=== PATIENT | male | born 1980 | race Caucasian/White ===

== ENCOUNTER → 2020-06-09 08:29 | Outpatient (BNVA) | payer OTHER, SELFPAY | PROVIDERS: PCP Nurse Practitioner Family; Visit Provider Physician Assistant ==

== ENCOUNTER 2020-06-17 08:24 | Outpatient (REF) | payer OTHER, SELFPAY ==
[2020-06-17 17:47] LABS: Vitamin D 25-OH Total 23.4 ng/mL (>30)
[2020-06-18 05:15] LABS: Folate 18.6 ng/mL (> or = 4.0); Vitamin B12 381 pg/mL (200-900)
[2020-06-19 16:41] LABS: Zinc 76 mcg/dL (60-130)
[2020-06-20 13:06] LABS: Vitamin B1 12 nmol/L (8-30)
[2020-06-20 18:17] LABS: Vitamin A 65 mcg/dL (38-98)
== END 2020-06-17 08:25 | disposition home or self-care (01) ==
LOC: HO.HMGCLDS 08:24
PROVIDERS: Visit Provider Physician Assistant
DX: E66.9 Obesity, unspecified (principal)
CPT/HCPCS: 36415; 82306; 82607; 82746; 84425; 84590; 84630

== ENCOUNTER → 2020-07-15 15:38 | Outpatient (BNVA) | payer OTHER, SELFPAY | PROVIDERS: PCP Nurse Practitioner Family; Visit Provider Dietitian, Registered | DX: E66.3 Overweight (principal); Z68.29 Body mass index [BMI] 29.0-29.9, adult | CPT/HCPCS: 97802 ==

== ENCOUNTER → 2020-08-25 15:55 | Outpatient (BNVA) | payer OTHER, SELFPAY | PROVIDERS: PCP Nurse Practitioner Family; Referring Provider Nurse Practitioner Family; Visit Provider Physician Assistant ==

== ENCOUNTER → 2024-08-27 09:53 | Outpatient (BNVA) | payer OTHER, SELFPAY | PROVIDERS: PCP Nurse Practitioner Family; Visit Provider Surgery ==

== ENCOUNTER 2024-11-18 08:17 | Outpatient (AMB) | payer OTHER, SELFPAY ==
--- OUTSIDE RECORDS SUMMARY | 2024-11-18 09:05 | XMS_ITS | Clinical Summary ---
Author Organization [facility] Address [address] [place] [id number] Phone Care Team Providers Care English Instructor Name Role Phone Lucien Guardado NP Primary Care Provider [phone] Allergies Active Allergy Reactions Criticality Noted Date Comments Amoxicillin-Pot Clavulanate 09/16/19 22 Medications atomoxetine (STRATTERA) 40 MG capsule 2 Active cetirizine (ZYRTEC) 10 MG tablet Take 10 mg by mouth daily. for 14 days 2 Active escitalopram oxalate (LEXAPRO) 20 MG tablet 2 Active OXcarbazepine (TRILEPTAL) 300 MG tablet 2 Active testosterone cypionate (DEPO-TESTOTERO NE) 200 mg/mL injection ADMINISTER 1 ML IN THE MUSCLE EVERY 21 DAYS 2 Active cholecalciferol (VITAMIN D3) 2,000 unit capsule Take by mouth daily. Active gabapentin (NEURONTIN) 100 MG capsule TAKE 2 CAPSULES(200 MG) BY MOUTH THREE TIMES DAILY 180 capsule 2 Active Immunizations Immunization Administration Dates Next Due COVID-19 (Pre-01/02) Moderna Vaccine, mRNA, PF 03/19/2021,05/01/2020,04/02/2020 INFLUENZA, SPLIT VIRUS, TRIV ALENT W/ PRESERVATIVE IM 03/27/2020,12/15/2017 Influenza, whole 12/26/2018 Tdap 12/15/2017,10/03/2011 Social History Tobacco Use Types Packs/Day Years Used Date Smoking Tobacco: Former Cigarettes 1.5 5 2 2012 Alcohol Use Standard Drinks/Week Comments Yes 10 (1 standard drink = 0.6 oz pu re alcohol) 1-2 per day Education Answer Date Recorded Are you interested in more education? Not on radha e 07/09/2022 Are you concerned about learning? Not on file 07/09/2022 No 07/09/2022 No 07/09/2022 Digital Access Answer Date Recorded No 08/07/2022 No 08/07/2022 No 08/07/2022 Reliable internet access at home? Not on file 08/07/2022 Device with a working camera? Not on file Sex and Gender Information Value Date Recorded Sex Assigned at Male 08/19/2021 9:42 AM EDT Legal Sex Male 9:27 AM EDT Gender Identity Male 08/19/2021 9:42 AM EDT Sexual Orientation Choose not to disclose 2021 9:42 AM EDT Last Filed Vital Signs Vital Sign Reading Time Taken Comments Blood Pressure 124/90 09/15/2021 8:24 AM EDT Pulse 73 09/15/2021 8:24 AM EDT Temperature - - Respiratory Rate - - Oxygen Saturation 98% 09/15/2021 8:24 AM EDT Inhaled Oxygen Concentration - - Weight 84.2 kg (185 lb 9.6 oz) 09/15/2021 8:24 A M EDT Height 167.6 cm (5' 6 ) 09/15/2021 8:24 AM EDT Body Mass Index 29.96 09/15/2021 8:24 AM EDT Plan of Treatment Health Maintenance Due Date Last Done Comments LIPID PANEL 1982 DEPRESSION SCREENING 1994 SMOKING Hx and SMOKELESS TOBACCO SCREENING 10/01/1995 HEPATITIS C SCREENING 2000 HIV ONE-TIME SCREENING (18-65 YEARS) 2000 INFLUENZA VACCINE (#1) 2024 , 12/26/2018, 12/15/2017 COVID-19 VACCINE ( season) 2024 08/20/2021, 03/19/2021, 05/01/2020, Additional history exists Adult Td,Tdap Booster 12/16/2027 12/15/2017, 012 HEPATITIS A VACCINES Aged Out No long er eligible based on patient's age to complete this topic HIB VACCINES Aged Out No longer eligi ble based on patient's age to complete this topic MENINGOCOCCAL VACCINES (ACWY) Aged Out No longer eligible based on patient's age to complete this topic MENINGOCOCCAL VACCINES (B) Aged Out N o longer eligible based on patient's age to complete this topic PNEUMOCOCCAL VACCINES (0-49 years) Aged Out No longer eligible based on patient's age to complete this topic Medical Devices Not on file Insurance [facility] Care Teams English Instructor Relationship Specialty Start Date End Date Lucien Guardado NP [address] [place] [id number] PCP - General Family Medicine 08/19/21 Additional Source Comments The information contained in this document represents components of the legal health record. It is not the complete legal health record.[facility]
--- NOTE | 2024-11-18 13:20 | MHC.OFFVISWM ---
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 Allergies animal dander Allergy (Intermediate, Verified 11/18/24 13:20) congestion grass pollen-perennial rye, standar Allergy (Intermediate, Verified 11/18/24 13:20) congestion mold Allergy (Intermediate, Verified 11/18/24 13:20) swollen amoxicillin (From Augmentin) Adverse Reaction (Verified 11/18/24 13:20) Rash clavulanic acid (From Augmentin) Adverse Reaction (Verified 11/18/24 13:20) Rash Medication List - Last Reconciled 11/18/24 by Myron Segal MD cariprazine (Vraylar) 6 mg PO DAILY omeprazole 20 mg PO DAILY oxcarbazepine 900 mg PO BID propranolol ER 60 mg PO DAILY risperidone 3 mg PO BEDTIME HPI HPI 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: Details: Start time: 1.19pm, End time: 2.04pm ?I spent 40 minutes speaking with the patient on the phone plus an additional 5 minutes reviewing and updating records for a total of 45 minutes HPI Comments Details: Previous weight loss efforts: self diet and exercise Wakes up: 7am, Sleeps: 9pm Breakfast: often skips (eggs or cereal) Lunch: 12-2pm (as dinner) Dinner: 6pm (rice, chicken, beef) Snacks: 4pm (chips, cheese and crackers), 8pm (same) Exercise: none Beverages: Coffee: (2 cups/d, black), Tea: none, Soda: regular Coke/Pepsi: occasionally, Juice: none, ETOH: 1-2 every other week [facility] Medical History (Updated 11/18/24 @ 13:25 by Myron Segal MD) GERD (gastroesophageal reflux disease) Hypertension Bipolar 1 disorder BMI 32.0-32.9,adult Obesity (BMI 30-39.9) History of tonsillitis Surgical History History of carpal tunnel surgery Hx of tonsillectomy S/P inguinal ligation of varicocele Family History Father No problems noted. Mother Drug abuse Sister Drug abuse Son No problems noted. Social History (Updated 08/27/24 @ 10:24 by Aurea Hummel CMA) Alcohol intake: current Alcohol intake frequency: a few times a month Alcohol type: beer Substance Use Type: Marijuana Telehealth Telehealth Telehealth Platform: Telephone Location of provider rendering services: practice address Location of patient: address on file Patient Identification confirmed using: Name, : Yes Telehealth method: voice only Patient verbally consented to treatment: Yes Patient verbally consented to billing insurance company: Yes Patient informed of any privacy concerns related to visit: Yes Minutes spent on Phone/Video with Pt.: 45 Assessment & Plan Assessment & Plan (1) Obesity (BMI 30-39.9): Code(s): E66.9 - Obesity, unspecified Category: Medical Plan: 1. You will receive a link of our software komal to generate an individualized nutritional and exercise plan specific for you. Please send me a screenshot of the plans you will generate Meal to include lean meat (beef, fish, pork, turkey, chicken), or korean yogurt, or egg whites, or beans with a salad with olive oil and fruits (berries, pears, apples, kiwi). Avoid salt, breads, potatoes, rice, pasta, desserts. ?2. If you choose shakes, each shake would be drunk slowly, like coffee in a period of 2 hours. ?3. If you choose bars, cut each bar in 4 pieces and eat each piece in 30min ?to make each bar last 2 hours. ?4. I emphasized the importance of measuring accurately the food portion and measure it when serving the food in plate ?5. The meal portions include a specific number of forks of meat and salad. You always eat the meat portion but you can replace up to half of salad/vegetables portion with rice, potatoes or pasta, or a fruit ?if you like. The less you do it the better weight loss will be. ?6. One full-size fork is what it can be scooped on the fork without falling aside and not what can be bit with the fork. Use regular forks like those you find in a typical restaurant. ?7.? Please use your body composition scale as we discussed and send me weight measurements as soon as possible and then once a week. 8. The best choice would be to purchase a stationary bike, elliptical or treadmill at home that can track calories. You can create and exercise plan with the [employer] komal. 9. Start the Wegovy when you get your body composition scale once a week. Use a calorie-counting komal to track your daily calories to create a calorie deficit with a target of consuming 4380-6052 calories per day. We discussed the potential side effects of Wegovy such as nausea, vomiting, abdominal pain, diarrhea and constipation and you will need to contact me if any of these symptoms occur or for any other new symptom you may experience 10. Goal is to lose at least 1.5-2lbs per week 11. Goal to lose at least 10% of your weight, which is about 20lbs. Ultimate weight goal: 180lbs before surgery 12. Please follow the diet plan exactly without any change. If you don't like something about the plan or you feel hungry you need to communicate with me so I can help you revise the plan. You should not change the plan yourself 13. Please do the following test: Check your heart rate at rest (at your sleep). Walk for exactly one mile distance as fast as you can and check your heart rate again as soon as you complete the mile walk. Text me the heart rate at rest and after the walk and the time in minutes and seconds that took you to complete the mile walk. You can use your smartphone's stopwatch to track accurately the time it took to walk the mile. Medications: New semaglutide (weight loss) (Wegovy) administer weeks 1 through 4 of therapy 0.25 mg (0.5 mL) subcut QWEEK 2 mL 0RF E66.9 - Obesity, unspecified, G47.33 - Obstructive sleep apnea (adult) (pediatric), I10 - Essential (primary) hypertension, Z99.89 - Dependence on other enabling machines and devices
[2024-11-18 13:33] VITALS: BMI 32.2
== END 2024-11-18 14:04 | disposition home or self-care (01) ==
PROVIDERS: PCP Nurse Practitioner Family; Visit Provider Surgery
DX: E66.9 Obesity, unspecified (principal); Z68.32 Body mass index [BMI] 32.0-32.9, adult
CPT/HCPCS: 98010